=== PATIENT | female | born 1940 | race Caucasian/White ===

== ENCOUNTER 2024-03-03 06:01 | Day surgery (SDC) | payer MEDICARE, OTHER ==
[2024-02-26 10:32] LABS: BASOPHILS # (AUTO) 0.1 X10'3 (0-0.2); BASOPHILS % (AUTO) 0.8 % (0-1); EOSINOPHILS # (AUTO) 0.2 X10'3 (0-0.9); EOSINOPHILS % (AUTO) 1.8 % (0-6); LYMPHOCYTES # (AUTO) 1.7 X10'3 (1.1-4.8); LYMPHOCYTES % (AUTO) 14.2 % (21-51); MEAN CORPUSCULAR HEMOGLOBIN 25.7 PG (27.0-31.0); MEAN CORPUSCULAR HGB CONC 31.8 g/dL (33.0-36.5); MEAN CORPUSCULAR VOLUME 80.8 FL (78-98); MEAN PLATELET VOLUME 9.7 FL (7.4-10.4); MONOCYTES % (AUTO) 8.6 % (2-12); NEUTROPHILS # (AUTO) 9.1 X10'3 (1.8-7.7); NEUTROPHILS % (AUTO) 74.6 % (42-75); PRE OP HEMATOCRIT 32.2 % (35.0-45.0); PRE OP PLATELET COUNT 254 X10'3 (140-440); PRE OP WHITE BLOOD COUNT 12.2 10'3 (4.8-10.8); RED BLOOD COUNT 3.99 X10'6 (4.20-5.60); RED CELL DISTRIBUTION WIDTH 16.1 % (11.5-14.5)
[2024-02-26 10:40] LABS: PRE OP HEMOGLOBIN 10.2 g/dL (12.0-16.0)
[2024-02-26 10:44] LABS: ALBUMIN 3.7 G/DL (3.4-5.0); ALKALINE PHOSPHATASE 89 IU/L (46-116); BLOOD UREA NITROGEN 28 MG/DL (7-18); BUN/CREATININE RATIO 14.5 (10.0-20.0); CALCIUM 8.9 MG/DL (8.5-10.1); CHLORIDE 107 MMOL/L (99-107); CREATININE 1.93 MG/DL (0.40-0.90); PRE OP ALT 30 U/L (30-65); PRE OP ANION GAP 14 (8-16); PRE OP AST 20 U/L (10-37); PRE OP BILIRUB, TOTAL 0.3 MG/DL (0.0-1.0); PRE OP POTASSIUM 4.3 MMOL/L (3.4-5.1); PRE OP SODIUM 140 MMOL/L (135-145); TOTAL CARBON DIOXIDE 18.6 MMOL/L (24-32); TOTAL PROTEIN 7.5 G/DL (6.4-8.2); eGFR 25 ML/MIN
[2024-02-26 11:16] LABS: PRE OP GLUCOSE 239 MG/DL (70-104)
[~2024-03-03] VITALS: Ht 152.4 cm; Wt 56.0 kg
[2024-03-03] MEDS: cefazolin 2gm/D5W 100mL 100 ML IV ONE (05:30)
[~2024-03-03 06:01] MED LIST: ASPI-1265 PO; DAPA10TA PO; DILT360C52 PO; HYDR25TA90; INSU100I31 SQ; ISOS30TA84 PO; LEVO75TA7 PO; LISI40TA13 PO; LOVA40TA2 PO; NITR0.4T48; NOVRI
[2024-03-03 06:10] VITALS: BP 144/62; PULSE 94; RESP 14; TEMP 98.2; O2SAT 98
[2024-03-03] MEDS: famotidine 20mg tablet PO ONE (06:51)
[2024-03-03] MEDS: ringers solution, lacted 1,000 ML IV SCH (06:52)
[2024-03-03] MEDS ORDERED: ringers solution, lacted 1,000 ML IV SCH (07:20)
[2024-03-03] MEDS ORDERED: labetalol 20mg/4ml (5mg/ml) syringe IV PRN (07:20)
[2024-03-03] MEDS ORDERED: morphine 4 MG/ML inj SYRINge IV PRN (07:20)
[2024-03-03] MEDS ORDERED: ondansetron/PF 4mg/2ml inj IV PRN (07:20)
[2024-03-03] MEDS ORDERED: morphine 2 MG/ML inj. syringe IV PRN (07:20)
[2024-03-03] MEDS ORDERED: hydrALAZINE 20mg/ml inj. IV PRN (07:20)
[2024-03-03] MEDS ORDERED: LIDOcaine 2% (20mg/ml) 5ml vial ONE (08:35)
[2024-03-03] MEDS ORDERED: propofol 10mg/ml 20ml vial IV ONE (08:38)
[2024-03-03] MEDS ORDERED: midazolam 1 mg/ML 2ml injection ONE (08:42)
[2024-03-03 08:58] VITALS: BP 126/44; PULSE 88; RESP 16; O2SAT 99
[2024-03-03 09:10] VITALS: BP 120/44; PULSE 88; RESP 21; O2SAT 92
[2024-03-03 09:20] VITALS: BP 122/47; PULSE 78; RESP 15
[2024-03-03 09:30] VITALS: BP 137/57; PULSE 75; RESP 17; O2SAT 96
[2024-03-03 09:38] VITALS: BP 135/54; PULSE 78; RESP 19; O2SAT 97
[2024-03-03] MEDS: LIDOcaine 2% (20mg/ml) 5ml vial IV ONE (10:19)
== END 2024-03-03 09:38 | disposition home or self-care (01) ==
LOC: PAS 06:01
PROVIDERS: ATTEND Orthopaedic Surgery Hand Surgery
DX: G56.01 Carpal tunnel syndrome, right upper limb (principal); I10 Essential (primary) hypertension; E11.9 Type 2 diabetes mellitus without complications; E78.00 Pure hypercholesterolemia, unspecified; E89.0 Postprocedural hypothyroidism; Z86.73 Personal history of transient ischemic attack (TIA), and cerebral infarction without residual deficits; Z85.850 Personal history of malignant neoplasm of thyroid; Z79.4 Long term (current) use of insulin; Z79.82 Long term (current) use of aspirin; Z79.84 Long term (current) use of oral hypoglycemic drugs; Z79.890 Hormone replacement therapy; Z79.891 Long term (current) use of opiate analgesic; Z79.899 Other long term (current) drug therapy; Z90.89 Acquired absence of other organs; Z95.1 Presence of aortocoronary bypass graft; Z98.890 Other specified postprocedural states
CPT/HCPCS: 36415; 64721; 80053; 82948; 85025; A4215; A6449; J0690; J2001; J2250; J2704; J7030; J7120; Z7506; Z7512; J0665; J3490